=== PATIENT | male | born 1940 | race Caucasian/White ===

== ENCOUNTER 2017-11-05 10:14 | Inpatient (IN) | payer OTHER, BC ==
[2017-10-24 14:26] VITALS: BMI 28.8
--- NOTE | 2017-11-05 07:54 | HP ---
Satellite [facility] - Chief Complaint Chief Complaint: left knee pain - Past Medical History Allergies/Adverse Reactions: Allergies Allergy/AdvReac Type Severity Reaction Status Date / Time No Known Allergies Allergy Verified 10/24/17 14:03 Cardiovascular: Yes: CAD, HTN, Hyperlipdemia - Current Medications Current Medications: Home Medications Medication Instructions Recorded Atorvastatin Ca [Lipitor] 80 mg PO HS 10/13/13 Ranitidine HCl 150 mg PO BID 10/13/13 Acetaminophen [Tylenol -] 1,000 mg PO BID 10/24/17 Amlodipine Besylate 10 mg PO DAILY 10/24/17 Ascorbic Acid [Vitamin C] 2,000 mg PO DAILY 10/24/17 Cholecalciferol (Vitamin D3) 2,000 unit PO DAILY 10/24/17 [Vitamin D] Dabigatran Etexilate Mesylate 150 mg PO BID 10/24/17 [Pradaxa -] Glucosa Bauman 2Kcl/Chondroitin Bauman 1 each PO DAILY 10/24/17 [Glucosamine & Chondroitin Cap] Lisinopril 30 mg PO DAILY 10/24/17 Metoprolol Succinate [Toprol Xl -] 100 mg PO DAILY 10/24/17 [place]-3 Fatty Acids/Fish Oil [Fish 1 each PO DAILY 10/24/17 Oil 1,000 mg Capsule] Ubidecarenone [Coq10] 50 mg PO DAILY 10/24/17 Vitamin B Complex 1 each PO DAILY 10/24/17 Satellite Physical Exam - Physical Examination General Appearance: Well Nourished, Well Developed, Alert & Oriented x3 ENT: Clear Lung: Normal air movement Heart: Regular rate & rhythm Extremities: Other (left knee- + swelling, + ttp, decr rom, nvi xrays show grade 4 tricompartmental djd) Neurological: Intact, Alert, Oriented Satellite Impression/Plan - Impression/Plan Impression: left knee djd Operative Procedure: left yovany tkr Date to be Performed: 11/05/17
[~2017-11-05 10:14] MED LIST: CEFAZOLIN 2 GM/D5W 2 GM/50 ML ML IVPB ONE; CELECOXIB 200 MG CAPSULE PO ONE; GABAPENTIN 300 MG CAPSULE (FP) PO ONE; TRANEXAMIC ACID 1000 MG/10 ML VIAL IVPUSH ONE; oxyCODONE HCL 10 MG SUSTAINED ACTING TABLET PO ONE
[2017-11-05] MEDS ORDERED: CELECOXIB 200 MG CAPSULE ONE (10:38)
[2017-11-05] MEDS ORDERED: GABAPENTIN 300 MG CAPSULE (FP) ONE (10:38)
[2017-11-05] MEDS ORDERED: BUPIVACAINE LIPOSOME/PF (EXPAREL) 266 MG/20 ML VIAL ONE (10:38)
[2017-11-05] MEDS ORDERED: oxyCODONE HCL 10 MG SUSTAINED ACTING TABLET ONE (10:38)
[2017-11-05] MEDS ORDERED: MIDAZOLAM HCL 2 MG/2 ML SINGLE DOSE VIAL ONE ×2 (10:45→12:00)
[2017-11-05] MEDS ORDERED: BUPIVACAINE 0.75% IN DEXTROSE/PF 2ML AMPULE NR ONE (11:16)
[2017-11-05] MEDS ORDERED: ceFAZolin SODIUM 1 GM VIAL ONE ×2 (11:16→11:19)
[2017-11-05] MEDS ORDERED: TRANEXAMIC ACID 1000 MG/10 ML VIAL ONE (11:17)
[2017-11-05] MEDS ORDERED: PROPOFOL 20 ML ONE (11:20)
[2017-11-05] MEDS ORDERED: SUCCINYLCHOLINE CHLORIDE 200 MG/10 ML VIAL ONE (11:20)
[2017-11-05] MEDS ORDERED: MAGNESIUM HYDROX 2400MG/30ML ORAL SUSPENSION 30 ML CUP PO PRN (13:43)
[2017-11-05] MEDS ORDERED: MAG HYDROX/AL HYDROX/SIMETH 30 ML UNIT-DOSE CUP PO PRN (13:43)
[2017-11-05] MEDS ORDERED: ONDANSETRON 4 MG/2 ML VIAL IVPUSH PRN ×2 (13:43→14:10)
[2017-11-05] MEDS ORDERED: LACTATED RINGERS SOLUTION 1,000 ML IV SCH (13:45)
--- NOTE | 2017-11-05 13:45 | OP ---
Operative Note - Note: Operative Date: 11/05/17 (jose luis) Pre-Operative Diagnosis: left knee djd Operation: left yovany tkr Post-Operative Diagnosis: Same as Pre-op Surgeon: Uche Garcia Vacuum Tank Tender: Antony Longo Anesthesiologist/RIVER CAPTAIN: Feliz Gimenez Anesthesia: Spinal, Local Specimens Removed: bone fragments Estimated Blood Loss (mls): 100 Operative Report Dictated: Yes
--- NOTE | 2017-11-05 15:17 | OP ---
DATE OF OPERATION: 11/05/2017 PREOPERATIVE DIAGNOSIS: Degenerative joint disease, left knee. POSTOPERATIVE DIAGNOSIS: Degenerative joint disease, left knee. PROCEDURE: Left total knee replacement with robotic assisted navigation (MAKOplasty). SURGICAL ATTENDING: Uche Garcia MD NEON INSTALLER: ISAAK Rodriguez ANESTHESIA: Regional and spinal. CLOSURE: A cemented Triathlon knee system with a 7 femur, 7 tibia, 11 polyethylene, 35 patella; No. 1 Vicryl, fascia; 0 and 2-0, subcutaneous; and 3-0 Monocryl subcuticular with skin glue for skin; 4-0 undyed Vicryl for pin sites. ESTIMATED BLOOD LOSS: Approximately 100 mL. COMPLICATIONS: None. CONDITION: Recovery room in stable condition. DESCRIPTION OF OPERATIVE PROCEDURE: Patient was taken to the operating room on November 05, 2017. Regional and spinal anesthesia was administered by the anesthesiologist. IV Kefzol and TXA were administered prophylactically prior to the case. A well-padded pneumatic tourniquet was placed on the left proximal thigh. The left lower extremity was prepped and draped in the usual sterile fashion. The patient had an S-shaped incision over the medial retinaculum of the knee from an old surgery in 1975. Due to the fact that a midline incision would have a very small bridge of skin between the incision and the old scar, it was elected to utilize the previous incision and just to extend it both at its proximal and distal ends laterally in order to perform this procedure. So, the incision was carried out over the S incision, and again, propagating laterally both proximally and distally. Hemostasis was achieved with Bovie cautery. The dissection was carried full thickness down to the extensor mechanism. Then, a flap was made laterally, exposing the patella. The medial parapatellar arthrotomy was then made using a 10 blade. Hemostasis achieved with Bovie cautery. This was done enough in order to invert the patella and flex the knee up to 90 degrees. Checkpoints were malleted in the medial femoral condyle and the proximal medial tibia. Two threaded parallel pins were drilled proximal and medial femoral condyles oblique and distal fashion into the distal femur. Two threaded parallel pins were also drilled through the anterior cortex and up into the posterior cortex, 1 handbreadth below the tibial tubercle through 2 small stab incisions. To both sets of pins were attached to navigation arrays. The knee was then registered with the navigation system by center of rotation of the hip, medial and lateral malleoli, and multiple points on both the femur and the tibia. Excellent registration was confirmed by "popping the bubbles." Then, all osteophytes both medially and laterally on both the femur and the tibia were debrided using rongeur. Posteromedial osteophytes on the tibia were osteotomized using a curved osteotome. The anterior and posterior cruciate ligaments were removed as were the meniscal remnants. The knee was then tensioned in both extension and 90 degrees of flexion both medially and laterally to ascertain and optimize the virtual position of the components on the navigation device. Once equal tensioning was obtained both medial and laterally, we brought the robot into the field and cut the bone based on these specifications. All bone fragments were removed. The knee was then confirmed to have equal tension both mediolaterally and at 90 degrees of flexion and in full extension by use of "dog bones." A 20-mm dog bone which corresponds to an 11-mm insert achieved equal tensioning mediolaterally in both full extension and 90 degrees of flexion. At this time, the number 7 cutting jig was used to cut the box in the femur. A number 7 trial was malleted into place and achieved good [id number] fit. A 7 tibial baseplate with 11-mm insert was allowed to "find itself" and was put into place. Confirmation with the navigation device revealed that the tibia had the appropriate external rotation. The knee was taken through a range of motion, found to have full extension, full flexion, with equal tensioning throughout. The patella was calipered for thickness and then osteotomized down to the appropriate level, leaving approximately 14 mm of thickness. A 35-mm lollipop was used to drill the lug holes into the patella, and a 35-mm trial component was deployed. The knee was taken through a range of motion from full extension to the full flexion with excellent tracking of the patella throughout with "no thumbs." The trial components were removed. The knee was thoroughly irrigated with antibiotic irrigation. A Esmarch bandage was used to exsanguinate the leg, and the tourniquet was inflated to 275 mmHg. Again, the knee was thoroughly irrigated and dried. The real components were then cemented in using modern generation cement techniques with pressurization in extension. The size of the femur was 7 as was the tibia and a 35 patella with an 11-mm trial component at this time. When the cement was hardened, the trial component was removed. The knee was thoroughly inspected to remove any excess cement. The knee was thoroughly irrigated once again with antibiotic irrigation, and then, the real polyethylene PS implant was slipped into place. Range of motion with full extension and full flexion with excellent tracking of the patella throughout with excellent tension . The vancomycin powder was then placed into the knee. The medial parapatellar arthrotomy was then closed using No. 1 Vicryl interrupted suture. After closure, the knee was again taken through a range of motion. [place] that no undue tension on the repair. No problems with patella tracking. At this time, the tourniquet was deflated. Knee was inspected for thorough hemostasis. The subcutaneous layer was thoroughly irrigated with antibiotic irrigation. The subcutaneous was then closed using 2-0 Vicryl and 3-0 Monocryl and skin glue for the skin. Again, the knee was taken through a range of motion, had no undue tension on the skin closure. An Aquacel dressing was then applied. The pins had been removed as were the checkpoints. The pin sites on the tibia were closed using 4-0 Vicryl subcuticular with skin glue. Sterile dressing was applied there as well, followed by a Sorenson dressing on the knee. Total tourniquet time was minutes. No complications. Estimated blood loss was approximately 100 mL. X-rays postoperatively revealed excellent position of the components. Patient was awakened from anesthesia and transferred to recovery room in stable condition. No complications. Estimated blood loss again around 100 mL. UCHE GARCIA M.D. [id number]
[2017-11-05] MEDS: oxyCODONE HCL 5 MG TABLET PO PRN ×2 (15:32→17:30)
[2017-11-05] MEDS ORDERED: oxyCODONE HCL 5 MG TABLET PO PRN (17:48)
[2017-11-05] MEDS ORDERED: ACETAMINOPHEN 1000 MG/100 ML VIAL (NON FORMULARY) IVPB PRN (17:49)
[2017-11-05] MEDS: CEFAZOLIN 1 GM/D5W 1 GM/50 ML BAG IVPB SCH (19:35)
[2017-11-05] MEDS: RANITIDINE HCL 150 MG TABLET (FP) PO SCH (21:30)
[2017-11-05] MEDS: ATORVASTATIN CA 80 MG TABLET (FP) PO SCH (21:32)
[2017-11-05] MEDS: SENNOSIDES/DOCUSATE COMBO (SENNA PLUS) TABLET (UD) PO SCH (21:32)
[2017-11-06] MEDS: CEFAZOLIN 1 GM/D5W 1 GM/50 ML BAG IVPB SCH (03:41)
--- NOTE | 2017-11-06 08:21 | PN ---
Progress Note (short form) - Note Progress Note: Ortho Pt seen and examined s/p left yovany tkr pod #1 Selected Entries 11/06/17 05:00 Temperature 97.3 F L Pulse Rate 68 Respiratory 20 Rate Blood Pressure 138/69 Laboratory Tests 11/06/17 07:35 WBC Pending Hgb Pending Hct Pending Plt Count Pending dressing c/d/i, calf soft,nt rom 0-40, nvi a/p PT dvt ppx pain control d/c planning to rehab
[2017-11-06 09:02] LABS: HEMATOCRIT 29.6 % (35.4-49); MCH 32.3 pg (25.7-33.7); PLATELET COUNT 266 K/MM3 (134-434); RBC 3.11 M/mm3 (4.00-5.60); RDW 12.7 % (11.9-15.9); WHITE BLOOD COUNT 11.8 K/mm3 (4.0-10.8)
[2017-11-06] MEDS: RANITIDINE HCL 150 MG TABLET (FP) PO SCH ×2 (10:00→16:30)
[2017-11-06] MEDS: amLODIPine BESYLATE 10 MG TABLET (FP) PO SCH (10:08)
[2017-11-06] MEDS: FERROUS SO4 325 MG TABLET (FP) PO SCH (10:08)
[2017-11-06] MEDS: LISINOPRIL 10 MG TABLET (FP) PO SCH (10:09)
[2017-11-06] MEDS: DABIGATRAN ETEXILATE MESYLATE 150 MG CAPSULE PO SCH ×2 (10:09→22:23)
[2017-11-06] MEDS: SENNOSIDES/DOCUSATE COMBO (SENNA PLUS) TABLET (UD) PO SCH ×2 (10:09→22:23)
[2017-11-06] MEDS: PANTOPRAZOLE 40 MG TABLET (FP) PO SCH (10:10)
[2017-11-06] MEDS: MULTIVITAMINS (DAILY MVI) TABLET (FP) PO SCH (10:11)
[2017-11-06] MEDS: oxyCODONE HCL 5 MG TABLET PO PRN ×2 (12:17→20:47)
--- NOTE | 2017-11-06 13:28 | PN ---
Progress Note (short form) - Note Progress Note: 77M POD1 s/p L TKR under spinal anesthetic with peripheral nerve blocks for post operative pain relief. Pt states that pain is well controlled and reports no anesthetic complications. AVSS. Motor and sensory function intact in bilateral lower extremities. Continue current regimen.
[2017-11-06] MEDS: ATORVASTATIN CA 80 MG TABLET (FP) PO SCH (22:23)
[2017-11-07] MEDS: RANITIDINE HCL 150 MG TABLET (FP) PO SCH ×2 (06:09→16:35)
[2017-11-07] MEDS: oxyCODONE HCL 5 MG TABLET PO PRN ×3 (07:48→21:08)
[2017-11-07 08:59] LABS: HEMOGLOBIN 9.9 GM/dl (11.7-16.9); MCH 33.8 pg (25.7-33.7); MCHC 35.2 g/dl (32.0-35.9); MEAN CELL VOLUME 95.9 fl (80-96); MEAN PLT VOLUME 7.8 fl (7.5-11.1); PLATELET COUNT 253 K/MM3 (134-434); RBC 2.92 M/mm3 (4.00-5.60); RDW 12.4 % (11.9-15.9)
--- NOTE | 2017-11-07 09:02 | PN ---
Progress Note (short form) - Note Progress Note: Ortho Pt seen and examined s/p left yovany tkr pod #2 Selected Entries 11/07/17 06:00 Temperature 98.5 F Pulse Rate 80 Respiratory 20 Rate Blood Pressure 144/55 Laboratory Tests 11/06/17 07:35 WBC 11.8 H Hgb 10.0 L Hct 29.6 L Plt Count 266 dressing c/d/i, calf soft,nt rom 0-40, nvi a/p PT dvt ppx pain control d/c planning to rehab tomorrow
[2017-11-07] MEDS: FERROUS SO4 325 MG TABLET (FP) PO SCH (10:03)
[2017-11-07] MEDS: LISINOPRIL 10 MG TABLET (FP) PO SCH (10:04)
[2017-11-07] MEDS: DABIGATRAN ETEXILATE MESYLATE 150 MG CAPSULE PO SCH ×2 (10:04→21:07)
[2017-11-07] MEDS: PANTOPRAZOLE 40 MG TABLET (FP) PO SCH (10:04)
[2017-11-07] MEDS: amLODIPine BESYLATE 10 MG TABLET (FP) PO SCH (10:04)
[2017-11-07] MEDS: SENNOSIDES/DOCUSATE COMBO (SENNA PLUS) TABLET (UD) PO SCH ×2 (10:04→21:07)
[2017-11-07] MEDS: MULTIVITAMINS (DAILY MVI) TABLET (FP) PO SCH (10:04)
--- NOTE | 2017-11-07 13:33 | PATH ---
Surgical Pathology Report Patient Name: MIKAEL ALLEN Med. Rec. #: [id number] /Age/Gender: 1940 (Age: 77) / M Account: [id number] Location: [facility] MED-SURG Taken: 11/05/2017 Received: 11/05/2017 Reported: 11/07/2017 Physicians: Uche Garica M.D. Specimen(s) Received BONE LEFT KNEE Clinical History Left knee osteoarthritis Final Diagnosis BONE, KNEE, LEFT, TOTAL KNEE REPLACEMENT MAKOPLASTY: BONE WITH DEGENERATIVE JOINT DISEASE, FIBROADIPOSE TISSUE, AND REACTIVE SYNOVIUM. Electronically Signed Randa Arenas M.D. Gross Description Received in formalin labeled "bone left knee," is an 11.5 x 10.5 x 1.2 cm aggregate of multiple portions of bone and soft tissue. The tibial plateau measures 8.3 x 5.8 x 1.5 cm. There are multiple areas of eburnation present, measuring up to 3.7 cm in greatest dimension. The remaining articular surfaces are pearson-red and diffusely granular. The underlying trabecular bone is yellow and hard. Stonecutter sections are submitted in one cassette, following decalcification. /11/05/201711/05/2017
[2017-11-07] MEDS ORDERED: diphenhydrAMINE HCL 25 MG CAPSULE (FP) PO PRN (14:29)
[2017-11-07] MEDS: ATORVASTATIN CA 80 MG TABLET (FP) PO SCH (21:07)
[2017-11-08] MEDS: RANITIDINE HCL 150 MG TABLET (FP) PO SCH (06:17)
[2017-11-08 06:32] VITALS: BP 142/52; PULSE 76; TEMP 99.1
--- NOTE | 2017-11-08 09:40 | PN ---
Progress Note (short form) - Note Progress Note: Ortho Pt seen and examined s/p left yovany tkr pod #3 Selected Entries 11/08/17 06:00 Temperature 99.1 F Pulse Rate 76 Respiratory 18 Rate Blood Pressure 142/52 Laboratory Tests 11/07/17 08:30 WBC 11.0 H Hgb 9.9 L Hct 28.0 L Plt Count 253 dressing c/d/i, calf soft,nt rom 0-40, nvi a/p PT dvt ppx pain control d/c to rehab today f/u in 10-14 days
--- NOTE | 2017-11-08 09:40 | DS ---
Physical Examination Vital Signs: Vital Signs Temperature 99.1 F 11/08/17 06:00 Pulse Rate 76 11/08/17 06:00 Respiratory Rate 18 11/08/17 08:45 Blood Pressure 142/52 11/08/17 06:00 O2 Sat by Pulse Oximetry (%) 95 11/08/17 08:45 Labs: CBC, BMP 11/07/17 08:30 Discharge Summary Reason For Visit: OSTEOARTHRITIS Procedures: Principal: left tkr Hospital Course: admitted for elective left yovany tkr, uneventful post-op, stable for d/c Condition: Good - Instructions Diet, Activity, Other Instructions: Post-op Instructions-Total Knee Replacement Call the office for a follow-up appointment in 1 week - [phone] Aspirin 325mg daily for 6 weeks. Pain medication was sent into your pharmacy. Apply Graduated Compression Stockings (TEDs) to both lower extremities- remove daily for hygiene ONLY Apply Sequential Compression Device (SCDs) to both Lower extremities remove for PT and hygiene ONLY Apply cold packs to affected area for 15 minutes every 2 hours. Physical Therapist will come to your home for the first 5 days. You will be set up with outpatient PT at your first post-operative visit. Patient may ambulate as tolerated-encourage self care (at least every 2-3 hours while awake) with walker or cane Maintain Aquacel (waterproof) dressing to operative wound (will be removed by surgeon at first office visit) Shower with Aquacel dressing in place-if Aquacel integrity compromised, remove and apply dry sterile dressing and notify Orthopedist. DO NOT SHOWER unless Orthopedists approves without Aquacel dressing CONTACT THE OFFICE FOR ANY CHANGE IN YOUR CONDITION (for example-fever greater than 102 degrees, excessive bleeding from operative site, purulent drainage, severe swelling or pain) GO TO THE EMERGENCY ROOM IF THERE IS A MEDICAL EMERGENCY Knee Precautions: * Keep a rolled towel under affected heel while in bed or chair (to keep knee in extension) * Keep affected leg elevated except during mealtimes * DO NOT PLACE PILLOW UNDER AFFECTED KNEE * If you have any questions, please do not hesitate to call the office - . Referrals: Uche Garcia MD [Staff Physician] - Disposition: HALF-WAY FACILITY - Home Medications Comprehensive Discharge Medication List: Ambulatory Orders Atorvastatin Ca [Lipitor] 80 mg PO HS 10/13/13 Ranitidine HCl 150 mg PO BID 10/13/13 Acetaminophen [Tylenol .Extra-Strength -] 1,000 mg PO BID 10/24/17 Amlodipine Besylate 10 mg PO DAILY 10/24/17 Ascorbic Acid [Vitamin C] 2,000 mg PO DAILY 10/24/17 Cholecalciferol (Vitamin D3) [Vitamin D3] 2,000 unit PO DAILY 10/24/17 Dabigatran Etexilate Mesylate [Pradaxa -] 150 mg PO BID 10/24/17 Glucosa Bauman 2Kcl/Chondroitin Bauman [Glucosamine & Chondroitin Cap] 1 each PO DAILY 10/24/17 Lisinopril 30 mg PO DAILY 10/24/17 Metoprolol Succinate [Toprol XL -] 100 mg PO DAILY 10/24/17 [place]-3 Fatty Acids/Fish Oil [Fish Oil 1,000 mg Capsule] 1 each PO DAILY Ubidecarenone [Coq10] 50 mg PO DAILY 10/24/17 Vitamin B Complex 1 each PO DAILY 10/24/17 Cyanocobalamin (Vitamin B-12) [Vitamin B12] 2,500 mcg PO DAILY 11/05/17 Ferrous Sulfate [Feosol] 325 mg PO DAILY 11/05/17 L.acidoph,Paracasei, B.lactis [Probiotic] 1 each PO DAILY 11/05/17 Oxycodone HCl/Acetaminophen [Percocet 5-325 mg Tablet -] 1 - 2 tab PO Q6H #50 tab MDD 8 11/05/17
[2017-11-08] MEDS: DABIGATRAN ETEXILATE MESYLATE 150 MG CAPSULE PO SCH (09:52)
[2017-11-08] MEDS: MULTIVITAMINS (DAILY MVI) TABLET (FP) PO SCH (09:52)
[2017-11-08] MEDS: LISINOPRIL 10 MG TABLET (FP) PO SCH (09:52)
[2017-11-08] MEDS: PANTOPRAZOLE 40 MG TABLET (FP) PO SCH (09:53)
[2017-11-08] MEDS: SENNOSIDES/DOCUSATE COMBO (SENNA PLUS) TABLET (UD) PO SCH (09:53)
[2017-11-08] MEDS: amLODIPine BESYLATE 10 MG TABLET (FP) PO SCH (09:53)
== END 2017-11-08 10:47 | DRG 470 ==
LOC: FM/S 10:14
PROVIDERS: ADMIT Orthopaedic Surgery; ATTEND Orthopaedic Surgery
PROC: 8E0Y0CZ Robotic Assisted Procedure of Lower Extremity, Open Approach (ICD-10-PCS; 2017-11-05)
PROC: 0SRD069 Replacement of Left Knee Joint with Oxidized Zirconium on Polyethylene Synthetic Substitute, Cemented, Open Approach (ICD-10-PCS; principal; 2017-11-05 12:01)
DX: M17.12 Unilateral primary osteoarthritis, left knee (principal); I25.10 Atherosclerotic heart disease of native coronary artery without angina pectoris; I10 Essential (primary) hypertension; E78.5 Hyperlipidemia, unspecified
CPT/HCPCS: 36415; 73560-TC-LT-FY; 85027; 88304-TC; 88311-TC; 94760; 97116-GP; 97162-GP; J0131